=== PATIENT | male | born 1985 | race Caucasian/White ===

== ENCOUNTER 2024-11-10 02:46 | Emergency (ER) | payer OTHER, SELFPAY ==
[2024-11-10 02:48] VITALS: BP 146/88
[2024-11-10 03:03] VITALS: BP 143/82
[2024-11-10 03:05] VITALS: BMI 26.8
--- NOTE | 2024-11-10 03:26 | ED.GENMED ---
History of Present Illness
General
Chief Complaint: Chest Pain
Source: patient
Time Seen by Provider: 11/10/24 03:12
History of Present Illness
History of Present Illness:
39-year-old male presents emergency department with complaints of 'heaviness' everywhere described as feeling like his breathing is heavy and a little short associated with feeling like his heart is 'working' although he denies palpitations
fluttering, chest pressure, diaphoresis, nausea, vomiting, back pain, neck pain, headache, dizziness, fever, chills. He says he strongly suspects that he may be anxious as he describes 2 of the busiest days any ever recalled having, working very
hard, very little sleep, and having alcohol mid week which is unusual for him. He started to read potential symptoms which worried him and prompted his visit here. When asked about chest pain he denies having any chest pain except for a 5-second.
At 10 PM where he had central chest discomfort that he describes as 'muscular'. Patient denies a family history of clotting disorder or early CAD. No leg swelling. Longest period of immobilization was 4 hours 2 days ago.
Past History
Past History
ED Past Medical History: HTN and Other (Kidney stones)
ED Past Surgical History: Appendectomy
Social History
Tobacco: Non-smoker
Alcohol: Occasional
Drug: None
Personal:
Living: with family
Employment: Employed
Family History
Family History: Cancer
Phy Exam
Physical Exam
Physical Exam:
GENERAL: Alert , in no apparent distress
EYE: pupils equal and reactive
NECK: Supple, no significant adenopathy.
ENT: o/p clr, mmm.
CARDIAC: Regular rate and rhythm .
LUNGS: Clear breath sounds bilaterally, no acute respiratory distress, no wheezes/rales/rhonchi
ABDOMEN: Soft, without focal tenderness, no r/g, no cvat
NEUROLOGICAL: Alert and oriented, no focal neuro deficits
SKIN: Warm and dry, skin intact.
MUSCULOSKELETAL: No edema, well perfused.
PSYCH: Normal and appropriate interaction.
Scores
Heart Score for Chest Pain Patients
STEMI patient?: No
History: Slightly or Non-Suspicious
ECG: Normal
Age: </= 45 years
Risk Factors: 1 or 2 Risk Factors
Troponin: </= Normal Limit
Heart Score for Chest Pain Patients: 1
Heart Score Risk: 2.5% MACE over next 6 weeks
Course
Orders/Labs/Results
Orders:
Orders
11/10/24 02:47
Electrocardiogram (*1) Urgent
Reason for Study: Chest Pain
11/10/24 02:48
EKG- Treatment ONCE
11/10/24 03:09
Cardiac Monitoring- Treatment ONCE
IV Insert/Care/Rem.- Treatment PRN
11/10/24 03:14
Complete Blood Count/With Diff Urgent
Comprehensive Metabolic Panel Urgent
Troponin I Urgent
11/10/24 03:35
D-Dimer Urgent
Abnormal Lab Results
11/10/24
03:14
RBC 4.67 L 10^6/uL
(4.70-6.10)
Glucose 110 H mg/dl
(70-99)
11/10/24 03:14
11/10/24 03:14
Vital Signs
Initial and Last Documented VS:
Initial Vital Signs
Temp Pulse Resp BP Pulse Ox
97.6 F 70 18 146/88 100
11/10/24 02:48 11/10/24 02:48 11/10/24 02:48 11/10/24 02:48 11/10/24 02:48
Last Documented Vital Signs
Temp Pulse Resp BP Pulse Ox
97.6 F 67 15 137/83 100
11/10/24 02:48 11/10/24 04:45 11/10/24 04:45 11/10/24 04:00 11/10/24 02:48
*Critical Care Note
Total Time (30-74mins, 75-104mins- exclusive of procedures): Not Applicable
Update Note
Update Note:
Patient presents to the Emergency Department with heavy breathing and feeling like 'heart working'____
Number and Complexity of Problems Addressed at the Encounter
� Chronic conditions affecting care:
� Acute Exacerbation and/or Progression of Chronic Illness:
� Differential Diagnosis includes: But not limited to ACS, PE, anxiety, etc. etc.
Amount and/or Complexity of Data to be Reviewed and Analyzed
� I performed an independent evaluation of and my interpretation is:
EKG: Read by me, normal sinus rhythm, normal rate, normal axis, no acute ischemia
CT:
Xrays:
Laboratory Studies: Read by me, unremarkable
Other:
� Review of other/old records reveals:
� Clinical information was obtained by an independent historian:
� Prescriptions/Medications Considered but not given:
� Further testing considered but not performed:
Risk of Complications and/or Morbidity or Mortality of Patient Management
� Social determinants of health affecting care:
� Discussion with other providers (PCP, Hospitalists, Consultants, etc):
� Escalation of care including admission/observation vs risk of discharge considered: 5:10 AM patient remains well-appearing, stable for discharge. Given history physical and workup highly pe,acs, dissection, etc.
ED Attending Note
-
Portions of this chart may have been created with voice recognition software.� Occasional wrong word or��sound alike� substitutions may have occurred due to the inherent limitations of voice recognition software.
Discharge Plan
Departure
Patient Disposition: Home (Routine Discharge)
Date of Disposition: 11/10/24
Time of Disposition: 05:11
Patient with high blood pressure during this ER visit?: Yes
Condition: Good
Discharge Problem:
Chest pain
Instructions: Chest Pain PCP Follow Up, BLOOD PRESSURE
Prescriptions:
No Action
lisinopril 20 mg Tablet
20 mg PO DAILY
Referrals:
Devi Quiroz CRNP [Family Provider] - Follow up in 2-3 days
Activity Restrictions/Additional Instructions:
IF YOU DEVELOP PERSISTENT CHEST PAIN, ANY SHORTNESS OF BREATH, NECK PAIN, JAW PAIN, BACK PAIN, GET WORSE, DO NOT GET BETTER, OR OTHER WORRISOME SIGNS, PLEASE RETURN TO THE ER IMMEDIATELY.
Interventions
Interventions:
*Risk Screen - Suicide Last Done: 11/10/24 03:06
*General Assessment Last Done: 11/10/24 03:06
*Neglect/Abuse Screening Last Done: 11/10/24 03:06
ED- Fall Risk Assessment Last Done: 11/10/24 03:06
*ED COVID-19 Vaccine History Last Done: 11/10/24 02:57
ED- Cardiac Assessment Last Done: 11/10/24 03:06
Discharge Date and Time
Print Language: SLOVENIAN
[2024-11-10 03:32] LABS: % Basophils 0.3 % (0-2); % Eosinophils 2.3 % (0-6); % Immature Granulocytes 0.3 % (0-0.5); % Lymphocytes 29.6 % (20.5-51.1); % Monocytes 8.8 % (1.7-9.3); % Neutrophils 58.7 % (42.2-75.2); Absolute Eosinophils 0.2 10^3/uL (0-0.7); Absolute Lymphocytes 1.9 10^3/uL (1.2-3.4); Absolute Monocytes 0.6 10^3/uL (0.1-0.6); Absolute Neutrophils 3.8 10^3/uL (1.4-6.5); Hematocrit 42.2 % (39.0-52.0); Hemoglobin 14.5 g/dL (13.0-18.0); Mean Corp Hgb Conc. 34.4 g/dL (33.0-37.0); Mean Corpuscular Volume 90.4 fL (80.0-94.0); Mean Platelet Volume 9.5 fL (7.4-10.4); Nucleated Red Blood Cells % 0 % (-); Platelet Count 224 10^3/uL (130-400); Red Blood Cell Count 4.67 10^6/uL (4.70-6.10); Red Cell Dist. Width 11.6 % (11.5-14.5); White Blood Cell Count 6.5 10^3/uL (4.8-10.8)
[2024-11-10 03:39] LABS: ALT (SGPT) 26 U/L (0-50); AST (SGOT) 30 U/L (17-59); Albumin 4.6 g/dl (3.5-5.0); Alkaline Phosphatase 43 U/L (38-126); Blood Urea Nitrogen 18 mg/dl (9-20); Calcium 9.4 mg/dl (8.4-10.2); Carbon Dioxide 25 mmol/L (22-30); Chloride 104 mmol/L (98-107); Estimated Creatinine Clearance 109 ml/min; Glucose 110 mg/dl (70-99); Potassium 4.2 mmol/L (3.5-5.1); Sodium 139 mmol/L (135-145); Total Bilirubin 0.6 mg/dl (0.2-1.3); eGFR > 60.00
[2024-11-10 03:50] LABS: Troponin I < 0.012 ng/ml
[2024-11-10 04:00] VITALS: BP 137/83
[2024-11-10 04:28] LABS: D-Dimer 0.31 ug/mlFEU (0.00-0.50)
[2024-11-10 05:00] VITALS: BP 136/88
== END 2024-11-10 05:29 | disposition home or self-care (01) ==
LOC: EMR 02:46
PROVIDERS: EMERGENCY PHYSICIAN Emergency Medicine; FAMILY PHYSICIAN Nurse Practitioner
DX: R07.89 Other chest pain (principal); I10 Essential (primary) hypertension
CPT/HCPCS: 99284; 80053; 84484; 85025; 85379; 93005

== ENCOUNTER 2025-03-29 06:21 | Day surgery (SDC) | payer OTHER, SELFPAY | END 2025-03-29 12:16 | disposition home or self-care (01) | LOC: GI 06:21 | PROVIDERS: ATTENDING PHYSICIAN Student in an Organized Health Care Education/Training Program | DX: Z12.11 Encounter for screening for malignant neoplasm of colon (principal); K63.89 Other specified diseases of intestine; Z80.0 Family history of malignant neoplasm of digestive organs | CPT/HCPCS: 45380; 88305 ==